=== PATIENT | male | born 1955 | race Caucasian/White ===

== ENCOUNTER 2022-08-26 10:58 | Outpatient (CLI) | payer MEDICARE, SELFPAY ==
[2022-08-26 15:30] LABS: Kit Draw Collected
== END 2022-08-26 10:59 | disposition home or self-care (01) ==
LOC: ANHGOSHLAB 11:02
PROVIDERS: PCP Family Medicine; Visit Provider Family Medicine
DX: Z01.818 Encounter for other preprocedural examination (principal); Z79.899 Other long term (current) drug therapy
CPT/HCPCS: 36415

== ENCOUNTER → 2022-08-26 11:10 | Outpatient (CLI) | payer MEDICARE, SELFPAY ==
--- NOTE | ~2022-08-26 | XR_ITS ---
EXAMINATION: XR lumbar spine min 4V DATE: 08/26/2022 11:39 INDICATION: Low back pain, unspecified. TECHNIQUE: 5 views of lumbar spine were obtained. COMPARISON: None. FINDINGS: There is 12 degrees dextroscoliosis of lumbar spine. Vertebral body heights are normal. The re is severely decreased disc height at L3-L4, L4-L5, and L5-S1 with endplate remodeling. There is se tomas facet joint osteoarthritis in lower lumbar spine. IMPRESSION: 1. Severe lower lumbar spondylosis. 2. Lumbar dextroscoliosis. Reviewed, dictated and finalized at location A. ERVATION OFFICER
== END ==
PROVIDERS: Visit Provider Family Medicine
DX: M54.50 Low back pain, unspecified (principal); M43.06 Spondylolysis, lumbar region; M41.86 Other forms of scoliosis, lumbar region
CPT/HCPCS: 72110

== ENCOUNTER 2023-03-17 08:12 | Outpatient (CLI) | payer MEDICARE, SELFPAY ==
[2023-03-17 14:05] LABS: Hematocrit 47.6 % (42.0-52.0); Hemoglobin 15.6 g/dL (14.0-18.0); Mean Corpuscular HGB Conc 32.8 g/dl (32-36); Mean Corpuscular Hemoglobin 32.2 pg (26-34); Mean Corpuscular Volume 98.1 fl (80-100); Mean Platelet Volume 10.8 fl (7.4-10.4); Platelet Count Result 186 k/mm3 (150-375); Red Blood Count 4.85 M/mm3 (4.6-6.20); Red Cell Distribution Width 12.1 % (11.5-14.5); White Blood Count 4.8 K/mm3 (4.5-10.0)
[2023-03-17 14:21] LABS: Alanine Aminotransferase 28 U/L (6-50); Albumin Level 4.4 g/dL (3.5-5.1); Alkaline Phosphatase 59 U/L (38-126); Anion Gap 5 mmol/L (8-16); Aspartate Amino Transferase 48 U/L (17-59); Bilirubin,Total 1.4 mg/dL (0.2-1.3); Blood Urea Nitrogen 14 mg/dL (9-20); Calcium 9.2 mg/dL (8.4-10.2); Carbon Dioxide 30 mmol/L (22-30); Chloride 103 mmol/L (98-107); Cholesterol 157 mg/dL (0-200); Estimated Glomerular Filt Rate > 60; Glucose 78 mg/dL (65-110); HDL Direct 45 mg/dL; Potassium 4.8 mmol/L (3.4-5.0); Sodium 138 mmol/L (137-145); Triglycerides 66 mg/dL (<150)
[2023-03-17 14:32] LABS: LDL Cholesterol Direct 89 mg/dL
[2023-03-17 14:49] LABS: Prostate Specific Antigen 2.8 ng/mL (< OR = 4.0)
== END 2023-03-17 08:13 | disposition home or self-care (01) ==
PROVIDERS: PCP Family Medicine; Visit Provider Family Medicine
DX: E78.5 Hyperlipidemia, unspecified (principal); I10 Essential (primary) hypertension; Z79.899 Other long term (current) drug therapy; Z12.5 Encounter for screening for malignant neoplasm of prostate
CPT/HCPCS: 36415; 80053; 80061; 84153; 84443; 85027; G0103

== ENCOUNTER 2023-03-25 08:48 | Outpatient (CLI) | payer MEDICARE, SELFPAY ==
--- NOTE | ~2023-03-25 | MR_ITS ---
EXAMINATION: MR lumbar spine wo con, MR sacrum wo con DATE: 03/25/2023 10:11 INDICATION: Spondylosis without myelopathy or radiculopathy. TECHNIQUE: 1. Magnetic resonance imaging (MRI) of the lumbar spine was performed without intravenous contrast. S equences included sagittal T2-weighted FSE, sagittal T2-weighted FS FSE, sagittal T1-weighted FSE, an d axial T2-weighted FSE. 2. MRI of the sacrum was performed without intravenous contrast. Sequences included sagittal T2-weigh samatnha FS FSE, oblique coronal T2-weighted FSE and oblique axial and oblique coronal T1-weighted FSE and T2-weighted FS FSE. COMPARISON: None FINDINGS: Lumbar spine: Partially sacralized L5 segment. 15 degrees lower lumbar dextroscoliosis measured between L2 and L4. Sagittal alignment is normal. Vertebral body heights are normal. Severe disc height loss, diffusely a t L5-S1, and the right at L4-L5 and on the left at L3-L4, each with associated fibrovascular degenera tive endplate changes. High T1 and T2 hyperintense hemangioma at T12. Marrow signal is otherwise norm al. Additional mild left-sided disc height loss at L2-L3. The conus medullaris terminates at T12. The re is normal signal in the visualized caudal tip of the spinal cord. Paravertebral soft tissues are u nremarkable. The following disc levels are specifically discussed: T12-L1: The disc does not extend beyond the endplate margin. There is mild bilateral facet joint oste oarthritis. There is no neural foraminal stenosis. There is no central canal stenosis. L1-L2: The disc does not extend beyond the endplate margin. There is mild to moderate bilateral facet joint osteoarthritis. There is mild bilateral neural foraminal stenosis. There is no central canal s tenosis. L2-L3: Disc is mildly bulging. There is mild left and moderate right facet joint osteoarthritis. Ther e is mild bilateral neural foraminal stenosis. There is mild central canal stenosis. L3-L4: Disc is bulging with annular fissure. There is hypertrophy of the left ligamentum flavum. The re is moderate bilateral facet joint osteoarthritis. There is moderate left and mild to moderate righ t neural foraminal stenosis. There is mild bilateral central canal stenosis including mild narrowing of the left and right lateral recesses. L4-L5: Disc is bulging with annular fissure. There is hypertrophy of the ligamentum flavum. There is moderate left and severe right facet joint osteoarthritis. There is moderate left and moderate to sev ere right neural foraminal stenosis. There is mild central canal stenosis including moderate narrowin g of the left and right lateral recesses. L5-S1: Posterior disc osteophyte complex. There is hypertrophy of the ligamentum flavum. There is mo derate left and severe right facet joint osteoarthritis. There is moderate bilateral neural foraminal stenosis. There is mild central canal stenosis. Sacrum: Bone marrow signal is normal throughout. There is mild nonuniform joint space narrowing consistent wi th mild osteoarthritis at the bilateral sacroiliac joints. No increased fluid signal or erosions christine g the bilateral sacral iliac joints to suggest an inflammatory sacroiliitis. Prostatomegaly. Visualiz ed soft tissues in the left hemipelvis are otherwise unremarkable. No pathologically enlarged pelvic lymphadenopathy. IMPRESSION: 1. 15 degree lower lumbar dextroscoliosis with severe spondylosis. 2. Mild bilateral sacroiliac osteoarthritis without findings to suggest inflammatory sacroiliitis. 3. Prostatomegaly. Reviewed, dictated and finalized at location A. IMPRESSION: 1. 15 degree lower lumbar dextroscoliosis with severe spondylosis. 2. Mild bilateral sacroiliac osteoarthritis without findings to suggest inflamm atory sacroiliitis. 3. Prostatomegaly.
== END 2023-03-25 08:49 ==
LOC: GOSHIMG 08:50
PROVIDERS: PCP Family Medicine; Visit Provider Family Medicine
DX: M47.816 Spondylosis without myelopathy or radiculopathy, lumbar region (principal); N40.0 Benign prostatic hyperplasia without lower urinary tract symptoms; M47.818 Spondylosis without myelopathy or radiculopathy, sacral and sacrococcygeal region
CPT/HCPCS: 72148; 72195

== ENCOUNTER 2023-09-02 07:47 | Outpatient (CLI) | payer MEDICARE, SELFPAY ==
--- NOTE | 2023-09-02 08:09 | ECG_ITS ---
Measurements Intervals [place] Rate: 101 P: 4 [place]: 217 QRS: 21 QRSD: 100 T: 26 QT: 350 QTc: 454 Interpretive Statements SINUS TACHYCARDIA WITH FIRST DEGREE AV BLOCK BORDERLINE ST-T WAVE ABNORMALITY- ANTEROLAT/INF LEADS BORDERLINE ECG NO PREVIOUS ECG AVAILABLE FOR COMPARISON Electronically Signed On 09-02-2023 8:31:11 FIRE SUPPORT SPECIALIST by Ye Carvajal D.O.
[2023-09-02 08:12] LABS: Hemoglobin 16.3 g/dL (14.0-18.0); Mean Corpuscular Hemoglobin 31.7 pg (26-34); Mean Corpuscular Volume 93.2 fl (80-100); Mean Platelet Volume 10.1 fl (7.4-10.4); Platelet Count Result 170 k/mm3 (150-375); Red Blood Count 5.15 M/mm3 (4.6-6.20); Red Cell Distribution Width 11.9 % (11.5-14.5)
[2023-09-02 08:23] LABS: Alanine Aminotransferase 32 U/L (6-50); Albumin Level 4.5 g/dL (3.5-5.1); Alkaline Phosphatase 66 U/L (38-126); Anion Gap 9 mmol/L (8-16); Aspartate Amino Transferase 34 U/L (17-59); Bilirubin,Total 1.7 mg/dL (0.2-1.3); Blood Urea Nitrogen 14 mg/dL (9-20); Calcium 9.3 mg/dL (8.4-10.2); Carbon Dioxide 25 mmol/L (22-30); Chloride 102 mmol/L (98-107); Cholesterol 169 mg/dL (0-200); Estimated Glomerular Filt Rate > 60; Glucose 112 mg/dL (65-110); HDL Direct 46 mg/dL; Potassium 4.3 mmol/L (3.4-5.0); Sodium 136 mmol/L (137-145); Triglycerides 75 mg/dL (<150)
[2023-09-02 08:35] LABS: LDL Cholesterol Direct 107 mg/dL
[2023-09-02 08:54] LABS: Appearance Urine Clear (Clear); Bilirubin Urine Negative (Negative); Blood Urine Negative (Negative); Color Urine Yellow (Yellow); Glucose Urine UA Negative (Negative); Ketones Urine Trace mg/dL (Negative); Leukocyte Esterase Ur Negative LEU/UL (Negative); Nitrate Urine Negative (Negative); Protein Urine Negative (Negative); Specific Grav Ur 1.015 (1.001-1.035)
[2023-09-02 08:56] LABS: Add Urine Microscopic? NO
[2023-09-02 09:59] LABS: Hepatitis C Virus Antibody Negative (Negative)
[2023-09-02 12:01] LABS: Hemoglobin A1C 5.2 % (<5.7)
== END 2023-09-02 07:48 | disposition home or self-care (01) ==
LOC: ANHLAB 07:50
PROVIDERS: PCP Family Medicine; Visit Provider Nurse Practitioner
DX: Z11.59 Encounter for screening for other viral diseases (principal); M54.50 Low back pain, unspecified; Z79.899 Other long term (current) drug therapy; R20.0 Anesthesia of skin; Z12.5 Encounter for screening for malignant neoplasm of prostate; R00.0 Tachycardia, unspecified
CPT/HCPCS: 36415; 80053; 80061; 81003; 83036; 84153; 84443; 85027; 86803; 93005; G0103

== ENCOUNTER 2023-09-04 08:42 | Outpatient (CLI) | payer MEDICARE, SELFPAY ==
--- NOTE | ~2023-09-04 | US_ITS ---
US abdomen complete EXAMINATION: US Abdomen Complete INDICATION: Jaundice PROCEDURE: Realtime High Resolution abdomen ultrasound. COMPARISON: No prior studies for comparison FINDINGS: Gallbladder within normal limits. No gallstones, pericholecystic fluid, gallbladder wall t hickening or biliary dilatation. Common bile duct measures 5 mm. There is a liver cyst measuring up to 9 cm. Pancreas within normal limits. Pancreatic tail is obscur ed by bowel gas. Spleen is unremarkeable. Renal echotexture is within normal limits bilaterally with out hydronephrosis, contour deforming mass or renal stone. Right kidney measures 10.5 cm. Left kidney measures 10 cm. Visualized aspects of the aorta and IVC are within normal limits. Portal vein is patent. No sonograph ic Funes's sign indicated by the technologist. IMPRESSION: 1: Liver cyst measuring 9 cm. Reviewed, dictated and finalized at location B. ICE MECHANIC
== END 2023-09-04 08:43 ==
LOC: GOSHIMG 08:43
PROVIDERS: PCP Nurse Practitioner; Visit Provider Nurse Practitioner
DX: K76.89 Other specified diseases of liver (principal)
CPT/HCPCS: 76700

== ENCOUNTER 2023-11-30 07:53 | Outpatient (CLI) | payer MEDICARE, SELFPAY ==
--- NOTE | ~2023-11-30 | US_ITS ---
US right upper quadrant INDICATION: Jaundice. PROCEDURE: Realtime right upper abdominal ultrasound. COMPARISON: Ultrasound dated 09/04/2023 FINDINGS: The pancreas is not well visualized due to bowel gas. There are liver cysts, largest measu ring 8.2 cm. No solid liver masses. There is normal directional flow in the portal vein. The gallbladder is normal without stones, gallbladder wall thickening or pericholecystic fluid. Comm on bile duct measures 3 mm. No sonographic Funes's sign. IMPRESSION: 1: Liver cysts, largest measuring 8.2 cm. Reviewed, dictated and finalized at location B.
== END 2023-11-30 07:54 ==
LOC: GOSHIMG 07:55
PROVIDERS: PCP Family Medicine; Visit Provider Family Medicine
DX: K76.89 Other specified diseases of liver (principal)
CPT/HCPCS: 76705

== ENCOUNTER 2024-01-01 08:05 | Outpatient (CLI) | payer MEDICARE, SELFPAY ==
[2024-01-01 13:33] LABS: Alanine Aminotransferase 28 U/L (6-50); Albumin Level 4.5 g/dL (3.5-5.1); Alkaline Phosphatase 65 U/L (38-126); Anion Gap 8 mmol/L (4-12); Aspartate Amino Transferase 53 U/L (17-59); Bilirubin,Total 1.3 mg/dL (0.2-1.3); Blood Urea Nitrogen 16 mg/dL (9-20); Calcium 9.4 mg/dL (8.4-10.2); Carbon Dioxide 25 mmol/L (22-30); Chloride 101 mmol/L (98-107); Cholesterol 167 mg/dL (0-200); Estimated Glomerular Filt Rate > 60; Glucose 92 mg/dL (65-110); HDL Direct 67 mg/dL; Potassium 4.1 mmol/L (3.4-5.0); Sodium 134 mmol/L (137-145); Triglycerides 70 mg/dL (<150)
[2024-01-01 13:44] LABS: LDL Cholesterol Direct 85 mg/dL
[2024-01-01 15:50] LABS: Hemoglobin A1C 4.9 % (<5.7)
== END 2024-01-01 08:06 | disposition home or self-care (01) ==
PROVIDERS: PCP Family Medicine; Visit Provider Nurse Practitioner
DX: E78.5 Hyperlipidemia, unspecified (principal); R73.01 Impaired fasting glucose
CPT/HCPCS: 36415; 80053; 80061; 83036

== ENCOUNTER 2024-10-04 08:29 | Outpatient (CLI) | payer MEDICARE, SELFPAY ==
--- OUTSIDE RECORDS SUMMARY | 2024-10-04 08:44 | XMS_ITS | Referral Summary ---
Author Organization [facility] Address [facility] [place] [address] Care Team Providers Care Derrick Worker Name Role Phone Jojo Gaviria Primary Care Provider [phone] Allergies No known active allergies Medications simvastatin (ZOCOR) 20 mg tablet Take 1 tablet (20 mg total) by mouth daily 11/01/2023 Active lisinopriL (PRINIVIL,ZESTRI L) 40 mg tablet Take 1 tablet (40 mg total) by mouth daily 11/01/2023 Active methocarbamoL (ROBAXIN) 750 mg tabletIndication s:Lumbar pain Take 1 tablet (750 mg total) by mouth 3 (three) times a day as needed for muscle spasms 90 tablet 11/17/2023 Active Active Problems No known active problems Immunizations Immunization Administration Dates Next Due Influenza, Quadrivalent, Hig h Dose, Preservative Free, Intrr 05/19/2023 Social History Tobacco Use Types Packs/Day Years Used Date Smoking Tobacco: Never Smokeless Tobacco: Never Tobacco Cessation:Counseling Given: No AUDIT-C Answer Date Recorded Q1: How often do you have a drink containing alc ohol? 2-4 times a month 11/17/2023 Q2: How many drinks containi ng alcohol do you have on a typical day when you are drinking? 1 or 2 11/17/2023 Q3: How often do you have si x or more drinks on one occasion? Never 11/17/2023 Personal Safety Answer Date Recorded Getting School Help Needed Not on file 10/26 Sex and Gender Information Value Date Recorded Sex Assigned at Not on file Legal Sex Male 12:03 PM CDT Gender Identity Not on file Sexual Orientation Not on file Occupation Industry Job Start Date Job End Date Retired Not on file Not on file Not on file Last Filed Vital Signs Vital Sign Reading Time Taken Comments Blood Pressure 138/85 11/17/2023 8:40 AM CDT Pulse 85 11/17/2023 8:40 AM CDT Temperature - - Respiratory Rate - - Oxygen Saturation - - Inhaled Oxygen Concentration - - Weight 91.1 kg (200 lb 12.8 oz) 11/17/2023 8:40 AM CDT Height 182.9 cm (6') 11/17/2023 8:40 AM CDT Body Mass Index 27.23 11/17/2023 8:40 AM CDT Plan of Treatment Not on file Insurance MEDICARE [facility] Address: [address] [place] [address] MEDICARE [facility] Address: [address] [place] [address] Care Teams Derrick Worker Relationship Specialty Start Date End Date Jojo Gaviria DO [facility] [place] [address] PCP - General Family Medicine 10/27/23
--- OUTSIDE RECORDS SUMMARY | 2024-10-04 08:44 | XMS_ITS | Continuity of Care Document ---
Author Organization [facility] Address [address] [place] [address] Phone Care Team Providers Care Production Artist Name Role Phone Tom Sanders MD Unavailable Unavailable Allergies, Adverse Reactions, Alerts Substance Reaction Status Criticality No Known Allergies Active No Inform ation Medications Medication Instructions Dosage Effective Dates (start - stop) Status Comments lisinopril 40 mg tablet - Active simvastatin 20 mg tablet - Active Besivance 0.6 % eye drops,suspension instill 1 drop by ophthalmic route 3 times every day for 14 days into affected eye; start 1 day before surgery - No Longer Active BromSite 0.075 % eye drops instill 1 drop by ophthalmic route 2 times every day for 4 weeks into affected eye(s) as directed by physician 1 drop - No Longer Active Lotemax SM 0.38 % eye gel drops start 1 day before surgery, instill 1 drop by ophthalmic route 3 times every day into affected eye - No Longer Active Procedures Procedure Date OFFICE/OUTPATIENT VISIT, [facility] OPHTH BIOMETRY IOL MASTER O.C.T. - RETINA COMPUTERIZED CORNEAL TOPOGRAPHY 022 O.T.C. W/ INTERP&RPT, OPTIC NERVE - No C harge Pkg Selection Advance Directives Directive Yes / No Effective Date File Name No Information Encounters Encounter Description Practice Location Reason(s) For Visit Diagnoses Date Provider Providers Copied on Encounter OFFICE/OUTPATI ENT VISIT, [facility], [address], [place], [place], [id number], [place] [phone] [facility] Cataract (chief complaint) Combined forms of age-related cataract, bilateralVitre ous degeneration, bilateralGlare sensitivityReg ular astigmatism, bilateral [address] [place], [place], [id number] , [place]. tel: [phone] Referring Provider: Tom Sherwood, [address], [address] . tel:[phone] [facility], [address], [place], [place], [id number], [place] tel:[phone] No Location No Information [address] Marilynmona Santos. [address] [place], [place], [id number] , [place]. tel: [phone] Family History Family Member Type Diagnosis Age At Onset No Information Payers Payer name Insurance type Covered democrat ID Authoriza tion(s) Employer [employer] 12 [id number] Medicare GBA [place] [id number] Social History Type Description Quantity Date Captured Comments Alcohol Use Details Caffeine Use Details coffee Tobacco Use Status undefined Smoking Status Never smoker Sex Male Chief Complaint And Reason For Visit From encounter dated '03/11/2022 08:10'. Cataract (chief complaint). Description: The 66 year old male presents for evaluation of Cataract in the right eye and left eye. It started about 1 year(s) ago. It occurs at night. The onset was progressive. It affects OU. The symptom is constant. The condition is mild. The condition is described as hazy. In addition, the condition is associated with when driving. OD told him he had cat in OD. Night time driving is difficult Reason For Referral Reason For Referral No Information History Of Present Illness Encounter Date Complaint History Of Prese nt Illness Cataract The 66 year old male presents for evaluation of Cataract in the right eye and left eye. It started about 1 year(s) ago. It occurs at night. The onset was progressive. It affects OU. The symptom is constant. The condition is mild. The condition is described as hazy. In addition, the condition is associated with when driving. OD told him he had cat in OD. Night time driving is difficult Functional Status Date Functional Assessmen t No Information Instructions Date Instruction Additional Infor mation Impression/Plan Related to Combi ferdinand forms of age-related cataract, bilateral Impression/Plan Related to Combi ferdinand forms of age-related cataract, bilateral Impression/Plan Related to Vitre ous degeneration, bilateral Impression/Plan Related to Glare sensitivity Assessments Type Assessment Date assessment Combined forms of age-related ca taract, bilateral impression Combined forms of age-related ca taract, bilateral: H25.813 assessment Vitreous degeneration, bilateral impression Vitreous degeneration, bilateral : H43.813 assessment Glare sensitivity impression Glare sensitivity: H53.71 assessment Regular astigmatism, bilateral A Patient Care Teams Name Effective Dates (start - stop) Status Members No Information
--- OUTSIDE RECORDS SUMMARY | 2024-10-04 08:44 | XMS_ITS | Clinical Summary ---
Author Organization [facility] Address [address] [place] [id number] Care Team Providers Care Oliving Machine Operator Name Role Phone Jojo Gaviria DO Primary Care Provider [phone]- [phone] Allergies No known active allergies Medications simvastatin [...] Hig h Dose, Preservative Free, Intrr 05/19/2023 Medical History Medical History Date Comments Hypertension Family History Medical History Relation Name Comments Hypertension Other Relation Name Status Comments Other Social History Tobacco Use Types Packs/Day Years [...] file Not on file Not on file Obstetrics History Last Filed Vital Signs Vital Sign Reading [...] 11/17/2023 8:40 AM CDT Plan of Treatment Health Maintenance Due Date Last Done Comments Colon Cancer Screening-Colonoscopy 1956 Depression Screening 1956 Fall Risk Assessment 1956 Hepatitis C Screening 1956 Prostate Cancer Screening-PSA 1956 DTaP/Tdap/Td Vaccine (1 - Tdap) 1967 Hepatitis B Screening 1974 Pneumococcal vaccine 65+ (1 of 1 - PCV) 2006 Zoster Vaccine (1 of 2) 2006 Well Visit 65+ 2021 Influenza Vaccine (#1) 2024 05/19/2023 Insurance MEDICARE [employer] MEDICARE [employer] Care Teams Oliving Machine Operator Relationship Specialty Start Date End Date Jojo Gaviria DO [facility] [facility] [place] [place] [address] PCP - General Family Medicine 10/27/23
[2024-10-04 10:11] LABS: Hematocrit 45.9 % (42.0-52.0); Hemoglobin 15.5 g/dL (14.0-18.0); Mean Corpuscular HGB Conc 33.8 g/dl (32-36); Mean Corpuscular Volume 94.6 fl (80-100); Mean Platelet Volume 9.8 fl (7.4-10.4); Platelet Count Result 238 k/mm3 (150-375); Red Blood Count 4.85 M/mm3 (4.6-6.20); Red Cell Distribution Width 11.6 % (11.5-14.5); White Blood Count 5.7 K/mm3 (4.5-10.0)
[2024-10-04 10:26] LABS: Alanine Aminotransferase 19 U/L (6-50); Alkaline Phosphatase 71 U/L (38-126); Anion Gap 8 mmol/L (4-12); Aspartate Amino Transferase 38 U/L (17-59); Blood Urea Nitrogen 11 mg/dL (9-20); Calcium 9.3 mg/dL (8.4-10.2); Carbon Dioxide 29 mmol/L (22-30); Chloride 102 mmol/L (98-107); Cholesterol 127 mg/dL (0-200); Estimated Glomerular Filt Rate > 60; Glucose 92 mg/dL (65-110); HDL Direct 38 mg/dL; Potassium 4.4 mmol/L (3.4-5.0); Sodium 139 mmol/L (137-145); Triglycerides 67 mg/dL (<150)
[2024-10-04 10:36] LABS: LDL Cholesterol Direct 66 mg/dL
[2024-10-04 11:15] LABS: Prostate Specific Antigen 4.2 ng/mL (< OR = 4.0); Thyroid Stimulating Hormone 0.975 uIU/mL (0.465-4.680)
== END 2024-10-04 08:30 | disposition home or self-care (01) ==
PROVIDERS: PCP Family Medicine; Visit Provider Family Medicine
DX: R17 Unspecified jaundice (principal); E78.5 Hyperlipidemia, unspecified; I10 Essential (primary) hypertension; Z12.5 Encounter for screening for malignant neoplasm of prostate; Z79.899 Other long term (current) drug therapy
CPT/HCPCS: 36415; 80053; 80061; 84153; 84443; 85027; G0103

== ENCOUNTER 2025-04-24 07:23 | Outpatient (CLI) | payer MEDICARE, SELFPAY ==
[2025-04-24 07:55] LABS: Hematocrit 46.6 % (42.0-52.0); Hemoglobin 15.8 g/dL (14.0-18.0); Mean Corpuscular HGB Conc 33.9 g/dl (32-36); Mean Corpuscular Hemoglobin 32.0 pg (26-34); Mean Corpuscular Volume 94.3 fl (80-100); Platelet Count Result 163 k/mm3 (150-375); Red Blood Count 4.94 M/mm3 (4.6-6.20); White Blood Count 5.3 K/mm3 (4.5-10.0)
[2025-04-24 08:15] LABS: Alanine Aminotransferase 22 U/L (6-50); Albumin Level 4.3 g/dL (3.5-5.1); Alkaline Phosphatase 65 U/L (38-126); Anion Gap 6 mmol/L (4-12); Aspartate Amino Transferase 35 U/L (17-59); Bilirubin,Total 1.3 mg/dL (0.2-1.3); Blood Urea Nitrogen 15 mg/dL (9-20); Calcium 9.1 mg/dL (8.4-10.2); Carbon Dioxide 28 mmol/L (22-30); Chloride 103 mmol/L (98-107); Cholesterol 148 mg/dL (0-200); Estimated Glomerular Filt Rate > 60; Glucose 93 mg/dL (65-110); HDL Direct 49 mg/dL; Potassium 4.0 mmol/L (3.4-5.0); Sodium 137 mmol/L (137-145); Total Protein 6.9 g/dL (6.3-8.2); Triglycerides 72 mg/dL (<150)
[2025-04-24 08:51] LABS: Thyroid Stimulating Hormone 1.340 uIU/mL (0.465-4.680)
== END 2025-04-24 07:24 | disposition home or self-care (01) ==
PROVIDERS: PCP Family Medicine; Visit Provider Family Medicine
DX: E78.5 Hyperlipidemia, unspecified (principal); I10 Essential (primary) hypertension; E66.3 Overweight; Z68.27 Body mass index [BMI] 27.0-27.9, adult; Z79.899 Other long term (current) drug therapy
CPT/HCPCS: 36415; 80053; 80061; 84443; 85027